=== PATIENT | male | born 1935 | race Caucasian/White ===

== ENCOUNTER 2024-09-14 16:54 | Inpatient (IN) ==
--- NOTE | 2024-09-14 17:27 | Emergency Department Note ---
Impression & Plan Hypoxia, Community acquired pneumonia ED Provider Note Provider: Rafy Lowry MD CHIEF COMPLAINT: Shortness of breath, weakness HISTORY OF PRESENT ILLNESS: Patient is a 88-year-old gentleman history of atrial flutter status post watchman placement this past week presenting here reporting for the last several days worsening cough and cold symptoms. Was having a productive cough with colored sputum last night. Feeling quite short of breath when trying to get around his house today. Did not fall or syncopized. Denies significant chest pain or abdominal pain. States little bit of chronic swelling of his left leg. Is not currently on blood thinners. Does not use significant cough or cold medicine. Patient's son has been ill with a head cold. Patient reports some sinus congestion but denies severe myalgias just more of a generalized weakness and again shortness of breath. PAST MEDICAL HISTORY: As noted above MEDICATIONS: Reviewed home medications SOCIAL HISTORY: Quit smoking in 1959 PHYSICAL EXAM: GENERAL: alert and oriented in no acute distress on stretcher Head: normocephalic and atraumatic EYES: No injection, discharge or icterus. EOMI. NECK: Trachea midline. ENT: Mucous membranes pink and moist. LUNGS: Airway patent. No retractions. Breath sounds some scattered wheeze mild tachypnea HEART: Irregular irregular rate and rhythm. No chest wall tenderness ABDOMEN: Soft and non-tender, without guarding or rebound. SKIN: Acyanotic, warm, dry, without rashes EXTREMITIES: Without tenderness with trace to 1+ bilateral lower extremity edema. NEUROLOGICAL: No focal deficits. No aphasia. No facial droop or slurred speech. Ambulatory. EK bpm atrial fibrillation. Some baseline respiratory artifact. No clear acute ST segment elevation with a right bundle branch block. Some nonspecific T wave changes. QTc 503. CONTINUOUS CARDIAC MONITORING: was ordered and showed a heart rate of 90s to 110s bpm in atrial fibrillation Patient's laboratory studies and imaging reviewed. Differential includes Reactive airway disease, pneumonia, pneumothorax, COPD, CHF, infections, cardiac ischemia, pulmonary embolism, musculoskeletal, gastrointestinal, as well as other pathologies. IMPRESSION/MEDICAL DECISION MAKING: Mildly tachypneic and wheezy here. No significant smoking history or asthma history. Some borderline A-fib RVR given a bit of metoprolol here. Given his wheezing is trialed a DuoNeb. Recent Watchman procedure but question if this is more infectious rather than complication from the procedure. Does not seem grossly fluid overloaded on exam. Will obtain chest x-ray basic blood work and a COVID flu RSV test. EKG without evidence of STEMI denies significant chest pain. No significant abdominal symptoms reported. 1 view chest x-ray obtained without evidence of significant pulmonary edema, pneumothorax, or large lobar pneumonia. CTA of the chest to exclude underlying PE and further evaluate for an occult pneumonia ordered. No leukocytosis on blood work here severe anemia. No significant electrolyte abnormality. Normal renal function. No transaminitis noted. BNP mildly elevated but less so than previous. Procalcitonin not significantly elevated. Negative COVID flu RSV. CT angiogram of the chest per radiology shows no evidence of significant PE or pericardial effusion. Do question some mild diffuse inflammatory changes. Will cover with course of antibiotics given doxycycline and ceftriaxone here as well as a small dose of steroids here. Did receive a small dose of metoprolol with the DuoNeb with rate control achieved. Currently on 3 L of oxygen satting well. Discussed with him and daughter findings. Do recommend that we bring him in especially in light of his hypoxia for further care. Hospitalist team was contacted. DIAGNOSIS: Hypoxia, community-acquired pneumonia DISPOSITION: Hospitalist will evaluate Patient was agreeable with this plan. 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 Acid reflux Right inguinal hernia Surgically Repaired Vertigo Actinic keratosis Actinic skin damage Arthritis knees History of BPH Hypercholesterolemia Seborrheic keratosis Atrial fibrillation Hypertension Chest pain "real sharp pain once in a while, I've had since I was young" Surgical History History of prostate biopsy (08/09/20) History of appendectomy as a teenager History of tonsillectomy and adenoidectomy as a child Hx of hernia repair (~2004) Family History Mother , Passed age 82 of cardiac issues Diabetes Father , Passed age 80 of Brain Aneurysm Prostate cancer, Onset Age: 75 no treatment that patient can remember Brother , Passed age 80 of double CABG issues No problems noted. Brother , Passed in 70's of suicide No problems noted. Brother , Passed in late 70's of heart failure/[place] No problems noted. Sister , Passed in 70's of unknown No problems noted. Sister , Passed in 70's of AR No problems noted. Sister Abdominal malignancy, Onset Age: 76 Currently battling Daughter No problems noted. Daughter No problems noted. Daughter No problems noted. Son No problems noted. Son No problems noted. 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: No Beliefs That Will Affect Care: None marital status: Current Living Situation: Family Current Living Situation Comment: and Daughter current occupational status: retired 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 Other Information That Helps Us Care for You: No Feels Safe at Home: Yes Safety Concerns: Feels Safe At This Time Childhood Exposure to Second-Hand Smoke: No Diet: regular caffeine: Yes (2 cups of coffee/day ) during the past year weight has: remained stable Dental Care, Regularly: Yes Assistive Devices: Denture - Upper and Denture - Lower Allergies Allergies Allergy/AdvReac Type Severity Reaction Status Date / Time Penicillins Allergy Unknown RASH Verified 09/14/24 18:58 Home Meds Home Medications Medication Instructions Recorded Confirmed atorvastatin 20 mg tablet 20 mg PO DAILY 01/25/19 09/14/24 acetaminophen 325 mg tablet 650 mg PO Q6H PRN Pain/Fever 10/01/20 09/14/24 ascorbic acid (vitamin C) 500 mg 1,000 mg PO DAILY 05/05/21 04/18/25 capsule,extended release doxazosin 1 mg tablet 1 mg PO DAILY 10/01/20 09/14/24 leuprolide (3 month) 22.5 mg (3 0 mg IM DIRECTED 10/01/20 09/14/24 month) intramuscular syringe kit (Lupron Depot) calcium carbonate (Tums) 1,000 mg PO DAILY 11/03/20 09/14/24 cholecalciferol (vitamin D3) 25 500 unit PO DAILY 11/03/20 09/14/24 mcg (1,000 unit) capsule aspirin 81 mg tablet,delayed 81 mg PO 3XWK 08/29/23 09/14/24 release (Adult Aspirin Regimen) carvedilol 6.25 mg tablet 6.25 mg PO BID 09/14/24 09/14/24 clopidogrel 75 mg tablet 75 mg PO DAILY 09/14/24 09/14/24 furosemide 20 mg tablet 20 mg PO DAILY 09/14/24 09/14/24 nitroglycerin 0.4 mg sublingual 0.4 mg sublingual DIRECTED PRN 09/14/24 09/14/24 tablet Chest Pain omega 3 350 mg-dha 235 mg-epa 90 1 cap PO DAILY 09/14/24 09/14/24 mg-fish oil 597 mg capsule,delay rel ([place]-3) Results & Data (ED) Vital Signs Vital Signs - 24 hr 09/14/24 16:57 09/14/24 17:02 09/14/24 17:24 Temperature 36.8 C Temperature Source Temporal Artery Scan Pulse Rate 87 Pulse Rate [Apical] Respiratory Rate 28 H Respiratory Effort / Characteristics Short of Breath Respiratory Depth Blood Pressure 126/81 Blood Pressure [Right Arm] Blood Pressure Mean 96 Blood Pressure Mean [Right Arm] Pulse Oximetry 89 L 98 96 Oxygen Delivery Method Room Air Oxymask Oxymask Oxygen Flow Rate 5 7 Sepsis Recent Fever Within 48 Hours No Sepsis New/Unexplained Change in Mental Status No Sepsis Action Taken by Nursing No Action Required Oxygen Flow Rate - Titration Pulse Oximetry Post Tiitration 09/14/24 17:27 09/14/24 17:33 09/14/24 18:28 Temperature Temperature Source Pulse Rate 112 H 110 H Pulse Rate [Apical] Respiratory Rate Respiratory Effort / Characteristics Respiratory Depth Blood Pressure 140/119 H Blood Pressure [Right Arm] Blood Pressure Mean Blood Pressure Mean [Right Arm] Pulse Oximetry 96 Oxygen Delivery Method Oxymask Oxygen Flow Rate 6 Sepsis Recent Fever Within 48 Hours Sepsis New/Unexplained Change in Mental Status Sepsis Action Taken by Nursing Oxygen Flow Rate - Titration 3 Pulse Oximetry Post Tiitration 96 09/14/24 19:00 Temperature Temperature Source Pulse Rate Pulse Rate [Apical] 96 H Respiratory Rate 18 Respiratory Effort / Characteristics Respiratory Depth Normal Blood Pressure Blood Pressure [Right Arm] 145/102 H Blood Pressure Mean Blood Pressure Mean [Right Arm] 116 Pulse Oximetry 94 Oxygen Delivery Method Oxymask Oxygen Flow Rate 3 Sepsis Recent Fever Within 48 Hours Sepsis New/Unexplained Change in Mental Status Sepsis Action Taken by Nursing Oxygen Flow Rate - Titration Pulse Oximetry Post Tiitration Laboratory Data 09/15/24 05:07 09/14/24 17:12 Lab Results 09/14/24 09/14/24 Range/Units 17:12 17:46 WBC 6.78 (4.8-10.8) K/ul RBC 4.60 L (4.70-6.10) M/uL Hgb 13.9 L (14.0-18.0) g/dl Hct 41.9 L (42.0-52.0) % MCV 91.1 (80.0-100.0) fL MCH 30.2 (25.0-34.0) pg MCHC 33.2 (32.0-36.0) g/dL RDW Std Deviation 45.7 (36.4-46.3) fL RDW Coeff of Cristel 13.6 (11.5-14.5) % Plt Count 211 (130-400) K/uL MPV 9.5 (9.4-12.4) fL Immature Gran % (Auto) 0.3 % Neut % (Auto) 79.7 % Lymph % (Auto) 11.2 % [place] % (Auto) 7.2 % Eos % (Auto) 1.2 % Baso % (Auto) 0.4 % Neut # (Auto) 5.40 (1.40-6.50) K/uL Lymph # (Auto) 0.76 L (1.20-3.40) K/uL [place] # (Auto) 0.49 (0.11-0.59) K/uL Eos # (Auto) 0.08 (0.00-0.50) K/uL Baso # (Auto) 0.03 (0.00-0.20) K/uL Immature Gran # (Auto) 0.02 (0.01-0.20) K/uL PT 10.8 (9.0-12.0) Seconds INR 1.0 (0.9-1.1) APTT 30 (21-31) Seconds PTT Ratio 1.1 Sodium 138 (136-145) mmol/L Potassium 4.5 (3.5-5.1) mmol/L Chloride 102 (98-107) mmol/L Carbon Dioxide 29 (21-32) mmol/L Anion Gap 7 (3-11) BUN 16 (6-23) mg/dl Creatinine 0.87 (0.6-1.4) mg/dl Est Cr Clr Drug Dosing Not Reportable eGFR 82.99 BUN/Creatinine Ratio 18.4 (10-20) Glucose 103 H (70-99(Fasting)) mg/dl Lactate 1.2 (0.4-2.0) mmol/L Calcium 8.4 L (8.6-10.3) mg/dl Total Bilirubin 1.0 (0.2-1.0) mg/dl AST 35 (13-39) U/L ALT 18 (7-52) U/L Alkaline Phosphatase 72 (34-104) U/L Troponin I High Sens 20.5 H (0-20) pg/ml B-Natriuretic Peptide 206 H (0-100) pg/ml Total Protein 7.0 (6.0-8.3) gm/dl Albumin 3.8 (3.4-5.0) gm/dl Globulin 3.2 (2.5-4.0) gm/dl Albumin/Globulin Ratio 1.2 (0.9-2) Procalcitonin 0.05 (0-0.5) ng/ml SARS-CoV-2 (PCR) NEGATIVE (Negative) Influenza Type A (PCR) Negative (Neg) Influenza Type B (PCR) Negative (Neg) RSV (RT-PCR) Negative (Neg) Administered Medications Albuterol (Albut/Ipratrop 3mg/0.5mg Neb 3 Ml Vial) 3 ml NEB Q4R [facility]; Protocol Stop: 10/14/24 23:18 Last Admin: 09/15/24 07:59 Dose: 3 ml Documented By: Admin: 09/15/24 02:30 Dose: 3 ml Documented By: Admin: 09/14/24 23:34 Dose: 3 ml Documented By: DONI Atorvastatin Calcium (Atorvastatin 20 Mg Tab) 20 mg PO DAILY EDGAR Stop: 10/15/24 08:59 Last Admin: 09/15/24 08:17 Dose: 20 mg Documented By: MARIJA Azithromycin (Azithromycin 250 Mg Tab) 500 mg PO HS EDGAR Stop: 09/19/24 23:44 Last Admin: 09/15/24 01:28 Dose: 500 mg Documented By: STEPHANIE Calcium Carbonate (Calcium Carbonate 500 Mg Chewable Tab) 1,000 mg PO DAILY EDGAR Stop: 10/15/24 08:59 Last Admin: 09/15/24 08:16 Dose: 1,000 mg Documented By: MARIJA Carvedilol (Carvedilol 6.25 Mg Tab) 6.25 mg PO BID EDGAR Stop: 10/14/24 23:18 Last Admin: 09/15/24 08:17 Dose: 6.25 mg Documented By: Admin: 09/15/24 01:28 Dose: 6.25 mg Documented By: STEPHANIE Clopidogrel Bisulfate (Clopidogrel Bisulfate 75 Mg Tab) 75 mg PO DAILY EDGAR Stop: 10/15/24 08:59 Last Admin: 09/15/24 08:16 Dose: 75 mg Documented By: MARIJA Dextromethorphan Polymer Complex (Dextromethorphan Polymr Complx 30 Mg/5 Ml Udp) 30 mg PO Q12H PRN PRN Reason: Cough Stop: 10/15/24 06:13 Last Admin: 09/15/24 08:18 Dose: 30 mg Documented By: MARIJA Doxazosin Mesylate (Doxazosin Mesylate 1 Mg Tab) 1 mg PO DAILY EDGAR Stop: 10/15/24 08:59 Last Admin: 09/15/24 08:16 Dose: 1 mg Documented By: MARIJA Furosemide (Furosemide 20 Mg Tab) 20 mg PO DAILY EDGAR Stop: 10/15/24 08:59 Last Admin: 09/15/24 08:17 Dose: 20 mg Documented By: MARIJA Guaifenesin (Guaifenesin 600 Mg Tabcr) 600 mg PO Q12 EDGAR Stop: 10/15/24 08:59 Last Admin: 09/15/24 08:18 Dose: 600 mg Documented By: MARIJA Methylprednisolone 40 mg/ (Syringe) 0.64 mls @ 1.5 mls/min IV QAM EDGAR Stop: 10/15/24 08:59 Last Admin: 09/15/24 09:10 Dose: 1.5 mls/min Documented By: MARIJA Discontinued Medications Albuterol (Albut/Ipratrop 3mg/0.5mg Neb 3 Ml Vial) 3 ml NEB NOW STA; Protocol Stop: 09/14/24 17:30 Last Admin: 09/14/24 17:32 Dose: 3 ml Documented By: NRB Doxycycline Hyclate (Doxycycline Hyclate 100 Mg Cap) 100 mg PO NOW STA Stop: 09/14/24 18:23 Last Admin: 09/14/24 18:36 Dose: 100 mg Documented By: NRB Ceftriaxone Sodium (Rocephin) 2,000 mg in 50 mls @ 100 mls/hr IV NOW STA Stop: 09/14/24 18:51 Last Infusion: 09/14/24 19:07 Dose: Infused Documented By: NRAlix Admin: 09/14/24 18:36 Dose: 100 mls/hr Documented By: STEPHANIE Ioversol (Optiray 320 125ml) 119 ml IV ONCE ONE Stop: 09/14/24 18:17 Last Admin: 09/14/24 18:16 Dose: 119 ml Documented By: JOANNAK Methylprednisolone (Methylprednisolone 125 Mg/2 Ml Vial) 40 mg IV NOW STA Stop: 09/14/24 18:30 Last Admin: 09/14/24 18:36 Dose: 40 mg Documented By: NRAlix Metoprolol Tartrate (Metoprolol Tartrate 1 Mg/Ml Vial) 5 mg IV NOW STA Stop: 09/14/24 17:30 Last Admin: 09/14/24 17:33 Dose: 5 mg Documented By: NRB Discharge Plan Visit Data Chief Complaint: Shortness of Breath/Dyspnea Stated Complaint: WHEEZNG, SOB, HEAD COLD ED Provider: Rafy Lowry Discharge Problem: Hypoxia, Community acquired pneumonia Patient Disposition: Being Evaluated by Hospitalist Discharge Instructions Interventions: ED Discharge Assessment Last Done: 09/14/24 23:19
[2024-09-14 17:32] LABS: Basophils # (auto) 0.03 K/uL (0.00-0.20); Basophils % (auto) 0.4 %; Eosinophils # (auto) 0.08 K/uL (0.00-0.50); Eosinophils % (auto) 1.2 %; Hematocrit (blood only) 41.9 % (42.0-52.0); Hemoglobin 13.9 g/dl (14.0-18.0); Immature Granulocytes # (auto) 0.02 K/uL (0.01-0.20); Immature Granulocytes % (auto) 0.3 %; Lymphocytes # (auto) 0.76 K/uL (1.20-3.40); Lymphocytes % (auto) 11.2 %; Mean Corpuscular Hemoglobin 30.2 pg (25.0-34.0); Mean Corpuscular Hgb Conc 33.2 g/dL (32.0-36.0); Mean Corpuscular Volume 91.1 fL (80.0-100.0); Mean Platelet Volume 9.5 fL (9.4-12.4); Monocytes # (auto) 0.49 K/uL (0.11-0.59); Monocytes % (auto) 7.2 %; Neutrophils % (auto) 79.7 %; Platelet Count 211 K/uL (130-400); RDW Coefficient of Variation 13.6 % (11.5-14.5); RDW Standard Deviation 45.7 fL (36.4-46.3); White Blood Count 6.78 K/ul (4.8-10.8)
[2024-09-14] MEDS: ALBUT/IPRATROP 3MG/0.5MG NEB 3 ML VIAL NEB STA (17:32)
[2024-09-14] MEDS: METOPROLOL TARTRATE 1 MG/ML VIAL IV STA (17:33)
[2024-09-14 17:52] LABS: Alanine Aminotransferase 18 U/L (7-52); Albumin Globulin Ratio 1.2 (0.9-2); Albumin Level 3.8 gm/dl (3.4-5.0); Alkaline Phosphatase 72 U/L (34-104); Anion Gap 7 (3-11); Aspartate Aminotransferase 35 U/L (13-39); BUN Creatinine Ratio 18.4 (10-20); Blood Urea Nitrogen 16 mg/dl (6-23); Calcium 8.4 mg/dl (8.6-10.3); Carbon Dioxide 29 mmol/L (21-32); Chloride 102 mmol/L (98-107); Globulin 3.2 gm/dl (2.5-4.0); Glucose 103 mg/dl (70-99(Fasting)); Potassium 4.5 mmol/L (3.5-5.1); Sodium 138 mmol/L (136-145)
[2024-09-14 17:56] LABS: Partial Thromboplastin Ratio 1.1; Partial Thromboplastin Time 30 Seconds (21-31); Prothrombin Time 10.8 Seconds (9.0-12.0)
[2024-09-14 17:58] LABS: Influenza A virus by PCR Negative (Neg); Influenza B virus by PCR Negative (Neg); RSV by PCR Negative (Neg); SARS CoV2 RNA(COVID-19) Ceph NEGATIVE (Negative); Troponin I High Sensitivity 20.5 pg/ml (0-20)
[2024-09-14] MEDS: OPTIRAY 320 125ml IV ONE (18:16)
[2024-09-14] MEDS: cefTRIAXone SODIUM 2,000 MG/50 ML BAG IV STA (18:36)
[2024-09-14] MEDS: methylPREDNISolone 125 MG/2 ML VIAL IV STA (18:36)
[2024-09-14] MEDS: DOXYCYCLINE HYCLATE 100 MG CAP PO STA (18:36)
--- NOTE | 2024-09-14 18:36 | XRay Report ---
Chest radiograph, one view History: Chest pain Comparison: 03/25/2016 Findings: Single AP view of the chest performed. Subtle streaky opacity at the right lower lung. Slightly blunted right costophrenic angle. No pneumothorax. The heart is enlarged. Left chest wall single-lead AICD. Normal pulmonary vascularity. No evidence for lymphadenopathy. No visualized bony or soft tissue abnormality. Impression: Subtle right basilar streaky opacity, atelectasis versus infection. Slightly blunted right costophrenic angle favoring small pleural effusion. Electronically signed by Jorge L Almazan 09-14-2024 6:35 PM
--- NOTE | 2024-09-14 19:24 | History & Physical Report ---
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 ED evaluation reveals no leukocytosis, H&H 13.9/41.9; normal PT/INR; CMP grossly WNL with exception glucose 103, calcium 8.4; troponin is 20.5, pending repeat; BNP 206; procalcitonin 0.05; COVID/flu/RSV negative CXR reveals subtle R basilar streaky opacity, atelectasis versus infection and slightly blunted R costophrenic angle favoring a small pleural effusion;chest CTA no PE or stenosis, bilateral areas of groundglass nodules in right basilar atelectatic plate seen possible inflammatory/infectious changes, enlarged mediastinal lymph nodes largest being the right paratracheal at 2.1 x 1.5 cm; EKG reveals A-fib with RVR and RBBB at 110 bpm.; Patient was provided with metoprolol 5 mg IV, methylprednisone 40 mg IV, doxycycline 100 mg p.o., ceftriaxone 2 g IV, and albuterol 3 mL neb in ED. 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 Sick contact of son. Previous smoker, no longer smoking. Suspect CAP, viral vs reactive. - CBC without leukocytosis, BNP 206 (down from baseline), Pro-Scooby 0.05 - CBC am - COVID/flu/RSV negative - CXR R basilar streaky opacity, atelectasis versus infection with slightly bl unted R costophrenic angle favoring a small pleural effusion - Chest CTA no PE or stenosis, bilateral areas of groundglass nodules in right basilar atelectatic plate seen possible inflammatory/infectious changes, enlarged mediastinal lymph nodes largest being the right paratracheal at 2.1 x 1.5 cm - Trop 20.5, pending repeat; EKG A-fib at 110 bpm, no signs of ischemia; No chest pain - demand - O2 prn; No O2 at baseline - FV + IC - DuoNeb gordon and prn - Solu-Medrol 40mg IV qAM - No F/C, no leukocytosis, procal WNL, and no localized area consolidation on CXR - Atypical coverage provided --> Azithro 500mg po x 3 days -- Adjust antibiotics as appropriate - Consider outpatient PFTs #A-fib with RVR H/o Afib, recent Watchman procedure in July 2024. Typically on carvedilol twice daily, eliquis d/c following watchman; DAPT currently. Received metoprolol tartrate 5 mg IV in ED. - EKG on admission does reveal A-fib with RVR to 110 bpm - Telemetry reveals A-fib, rate into 80s-90s - CBC without leukocytosis and overall stable H&H, CMP with mildly decreased calcium (8.4), troponin 20.5 and pending repeat, BNP at 206 - Currently rate acceptable for current illness - Monitor on telemetry #HLD- Atorvastatin - continue #Prostate CA/BPH- Follows with urology, most recent visit 03/12/2024; Lupron previously, no longer on; Doxazosin - continue Dispo: Admit, PCU VTE Prophylaxis: SCDs This document was dictated utilizing [employer]. Please excuse any grammatical errors that may be secondary to use of this software. 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 States that he does have a productive cough, but with clear sputum and that this has decreased some. 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 Denies fever or chills. No chest pain, palpitations, abdominal pain, N/V/D/C, numbness/tingling, LUTS, or F/C. Does not have a history of COPD or asthma. Smoked in the past, quit in the 1960s per patient. ED evaluation reveals no leukocytosis, H&H 13.9/41.9; normal PT/INR; CMP grossly WNL with exception glucose 103, calcium 8.4; troponin is 20.5, pending repeat; BNP 206; procalcitonin 0.05; COVID/flu/RSV negative CXR reveals subtle R basilar streaky opacity, atelectasis versus infection and slightly blunted R costophrenic angle favoring a small pleural effusion; chest CTA no PE or stenosis, bilateral areas of groundglass nodules in right basilar atelectatic plate seen possible inflammatory/infectious changes, enlarged mediastinal lymph nodes largest being the right paratracheal at 2.1 x 1.5 cm.; EKG reveals A-fib with RVR and RBBB at 110 bpm.; Patient was provided with metoprolol 5 mg IV, methylprednisone 40 mg IV, doxycycline 100 mg p.o., ceftriaxone 2 g IV, and albuterol 3 mL neb in ED. Please see Dr. Porter's attestation for adjustments/additions to treatment plan. Allergies Allergy/AdvReac Type Severity Reaction Status Date / Time Penicillins Allergy Unknown RASH Verified 09/14/24 18:58 Home Medications Medication Instructions Recorded Confirmed Type atorvastatin 20 mg tablet 20 mg PO DAILY 01/25/19 09/14/24 History acetaminophen 325 mg tablet 650 mg PO Q6H PRN Pain/Fever 10/01/20 09/14/24 History ascorbic acid (vitamin C) 500 mg 1,000 mg PO DAILY 10/01/20 09/14/24 History capsule,extended release doxazosin 1 mg tablet 1 mg PO DAILY 10/01/20 09/14/24 History leuprolide (3 month) 22.5 mg (3 0 mg IM DIRECTED 10/01/20 09/14/24 History month) intramuscular syringe kit (Lupron Depot) calcium carbonate (Tums) 1,000 mg PO DAILY 11/03/20 09/14/24 History cholecalciferol (vitamin D3) 25 500 unit PO DAILY 11/03/20 09/14/24 History mcg (1,000 unit) capsule aspirin 81 mg tablet,delayed 81 mg PO 3XWK 08/29/23 09/14/24 History release (Adult Aspirin Regimen) carvedilol 6.25 mg tablet 6.25 mg PO BID 09/14/24 09/14/24 History clopidogrel 75 mg tablet 75 mg PO DAILY 09/14/24 09/14/24 History furosemide 20 mg tablet 20 mg PO DAILY 09/14/24 09/14/24 History nitroglycerin 0.4 mg sublingual 0.4 mg sublingual DIRECTED PRN 09/14/24 09/14/24 History tablet Chest Pain omega 3 350 mg-dha 235 mg-epa 90 1 cap PO DAILY 09/14/24 09/14/24 History mg-fish oil 597 mg capsule,delay rel ([place]-3) 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 Acid reflux Right inguinal hernia Surgically Repaired Vertigo Actinic keratosis Actinic skin damage Arthritis knees History of BPH Hypercholesterolemia Seborrheic keratosis Atrial fibrillation Hypertension Chest pain "real sharp pain once in a while, I've had since I was young" Surgical History History of prostate biopsy (08/09/20) History of appendectomy as a teenager History of tonsillectomy and adenoidectomy as a child Hx of hernia repair (~2004) Family History Mother , Passed age 82 of cardiac issues Diabetes Father , Passed age 80 of Brain Aneurysm Prostate cancer, Onset Age: 75 no treatment that patient can remember Brother , Passed age 80 of double CABG issues No problems noted. Brother , Passed in 70's of suicide No problems noted. Brother , Passed in late 70's of heart failure/VT No problems noted. Sister , Passed in 70's of unknown No problems noted. Sister , Passed in 70's of VT No problems noted. Sister Abdominal malignancy, Onset Age: 76 Currently battling Daughter No problems noted. Daughter No problems noted. Daughter No problems noted. Son No problems noted. Son No problems noted. Social History Smoking Status: Former smoker Tobacco Type: Cigarettes packs per day: 1; Second Hand Exposure: No; Do You Dip or Chew Tobacco: Yes (Quit 1959, Used 40 yrs ); Hx Alcohol Use: Yes Alcohol type: beer Alcohol Intake Frequency: 4 or More x per/Week Hx Substance Use: No Preferred Language: Maltese Communication Ability: Effective Visual Impairment: Limited Hearing Ability: Hard of Hearing [place] Winder Required: No Beliefs That Will Affect Care: None marital status: Current Living Situation: Family Current Living Situation Comment: and Daughter current occupational status: retired 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 Other Information That Helps Us Care for You: No Feels Safe at Home: Yes Safety Concerns: Feels Safe At This Time Childhood Exposure to Second-Hand Smoke: No Diet: regular caffeine: Yes (2 cups of coffee/day ) during the past year weight has: remained stable Dental Care, Regularly: Yes Assistive Devices: Denture - Upper and Denture - Lower Review of Systems Review of Systems: All systems reviewed & are unremarkable except as noted in Subjective Physical Exam Physical Exam: General: No acute distress Skin: Warm and dry Head: Normocephalic, atraumatic Eyes: PERRL, conjunctivae clear, sclera non-icteric ENT: External ear and ear canal without swelling, [place]; nose atraumatic; good dentition, tongue normal appearance, pharynx normal Neck: Supple, no LAD Cardio: Irregularly irregular rhythm, regular rate, no M/G/R, S1 and S2 normal; surgical scar on chest Resp: Audible wheezing without stethoscope on exam, inspiratory and expiratory wheezing throughout Abdomen: Soft, symmetric, nontender; No masses or hepatosplenomegaly; Bowel sounds normoactive MSK: No deformities; pulses palpable and equal; no edema. Neuro: Awake, alert; Sensation intact bilaterally; CN grossly intact Psych: Appropriate mood and affect; good judgement and insight. Daughter, Brian, is present in room at time of visit. Results & Data Results & Data Vital Signs (Past 12 Hours) Vital Signs Temp Pulse Pulse Resp BP BP Pulse Ox 09/14/24 19:00 96 H 18 145/102 H 94 09/14/24 18:28 96 09/14/24 17:33 110 H 140/119 H 09/14/24 17:27 112 H 09/14/24 17:24 96 09/14/24 17:02 98 09/14/24 16:57 36.8 C 87 28 H 126/81 89 L O2 Del Method O2 Flow Rate 09/14/24 19:00 Oxymask 3 09/14/24 18:28 Oxymask 6 09/14/24 17:33 09/14/24 17:27 09/14/24 17:24 Oxymask 7 09/14/24 17:02 Oxymask 5 09/14/24 16:57 Room Air Laboratory Results 09/14/24 17:46 Aerobic Blood Culture - Pending Blood Anaerobic Blood Culture - Pending 09/14/24 17:45 Aerobic Blood Culture - Pending Blood Anaerobic Blood Culture - Pending 09/14/24 09/14/24 17:46 17:12 WBC 6.78 RBC 4.60 L Hgb 13.9 L Hct 41.9 L MCV 91.1 MCH 30.2 MCHC 33.2 RDW Std Deviation 45.7 RDW Coeff of Cristel 13.6 Plt Count 211 MPV 9.5 Immature Gran % (Auto) 0.3 Neut % (Auto) 79.7 Lymph % (Auto) 11.2 Hall % (Auto) 7.2 Eos % (Auto) 1.2 Baso % (Auto) 0.4 Neut # (Auto) 5.40 Lymph # (Auto) 0.76 L Hall # (Auto) 0.49 Eos # (Auto) 0.08 Baso # (Auto) 0.03 Immature Gran # (Auto) 0.02 PT 10.8 INR 1.0 APTT 30 PTT Ratio 1.1 Sodium 138 Potassium 4.5 Chloride 102 Carbon Dioxide 29 Anion Gap 7 BUN 16 Creatinine 0.87 Est Cr Clr Drug Dosing Not Reportable eGFR 82.99 BUN/Creatinine Ratio 18.4 Glucose 103 H Lactate 1.2 Calcium 8.4 L Total Bilirubin 1.0 AST 35 ALT 18 Alkaline Phosphatase 72 Troponin I High Sens 20.5 H B-Natriuretic Peptide 206 H Total Protein 7.0 Albumin 3.8 Globulin 3.2 Albumin/Globulin Ratio 1.2 Procalcitonin 0.05 SARS-CoV-2 (PCR) NEGATIVE Influenza Type A (PCR) Negative Influenza Type B (PCR) Negative RSV (RT-PCR) Negative Diagnostic Findings Chest X-Ray 09/14/24 17:10 Chest radiograph, one view History: Chest pain Comparison: 03/25/2016 Findings: Single AP view of the chest performed. Subtle streaky opacity at the right lower lung. Slightly blunted right costophrenic angle. No pneumothorax. The heart is enlarged. Left chest wall single-lead AICD. Normal pulmonary vascularity. No evidence for lymphadenopathy. No visualized bony or soft tissue abnormality. Impression: Subtle right basilar streaky opacity, atelectasis versus infection. Slightly blunted right costophrenic angle favoring small pleural effusion. Electronically signed by Jorge L Almazan 09-14-2024 6:35 PM Chest CTA 09/14/24 17:41 EXAM: CT angio chest PE protocol CLINICAL HISTORY: PE, hypoxia/sob. TECHNIQUE: CT angiography of the chest was performed with and without intravenous contrast with the following protocol: axial images with, reconstructed coronal and sagittal images. Non-contrast images were initially acquired, followed by contrast-enhanced images in arterial and venous phases. Intravenous contrast 119ml opti 320 was administered using automated injection techniques. Bolus tracking was employed to optimize arterial phase imaging. One of these 3D techniques was utilized: Maximum Intensity Pixel (MIP), 3D Reconstructed Images, Volume Rendered Images, Surface Shaded Rendering. One of the following dose reduction techniques was utilized for this exam: Automated exposure control, adjustment of the mA and/or kV according to patient size, and use of iterative reconstruction. COMPARISON: Comparison is made with [previous imaging studies, if available, otherwise state "No prior studies available for comparison."] FINDINGS: Aorta and Great Vessels: Ascending Aorta: Normal in caliber, no aneurysm, dissection, or significant atherosclerosis. Aortic Arch: Normal in caliber, no aneurysm, dissection, or significant atherosclerosis. Descending Aorta: Normal in caliber, no aneurysm, dissection, or significant atherosclerosis. Pulmonary Arteries: The main pulmonary artery and its branches are patent. No evidence of pulmonary embolism or significant stenosis. Heart: Cardiac Chambers: Normal in size. No evidence of cardiomegaly. Pericardium: No pericardial effusion or thickening. Left atrial appendage closure noted. Lungs and Pleura: Bilateral areas of ground glass nodules and right basal atelectatic plate is seen. No pleural effusion or pleural thickening. Mediastinum: Enlarged mediastinal lymph nodes largest is right paratracheal measuring 2.1x1.5 cm. Normal appearance of the trachea and central bronchi. Hilar Structures: Hilar structures are normal without enlargement. Chest Wall: No mass lesions or abnormalities in the chest wall. Vascular Structures: Superior Vena Cava: Patent without evidence of stenosis or thrombus. Inferior Vena Cava: Patent without evidence of stenosis or thrombus. Bones and Soft Tissues: No fractures, lytic, or blastic lesions of the visualized bony structures. Soft tissues are unremarkable. IMPRESSION: 1. No evidence of pulmonary embolism or significant stenosis. 2. Bilateral areas of ground glass nodules and right basal atelectatic plate is seen. Possible inflammatory/infectious changes. Correlate clinically. 3. Enlarged mediastinal lymph nodes largest is right paratracheal, measuring 2.1x1.5 cm. Electronically signed by Kenny Harrell 09-14-2024 8:11 PM Medications Administered Metoprolol tartrate 5 mg IV Methylprednisolone 40 mg IV Doxycycline 100 mg p.o. Ceftriaxone 2 g IV Albuterol 3 mL neb x 1 ECG Additional Comments: A-fib with RVR, RBBB 110 bpm, QRS 134, QT/QTc 372/503, PRT */268/34 Code Status & VTE Plan Code Status Full Supervising Physician Co-Signing Physician Notes I personally saw and examined the patient. I independently reviewed the labs, EKG, imaging, problem list, medication list, past medical history and family history. I verified all belle points and agree with Annita Wesley PA-C with the following exceptions and/or additions: 88 year old male presents to the ER with progressive shortness of breath for the last week. Reports occasional wheezing with illnesses prior to this but no diagnosed COPD or asthma. O/E HS increased rate, irregular rhythm, no murmurs, increased accessory muscle use, Chest expiratory wheezing throughout, no crackles, Abdo SNT A/P Acute respiratory failure with hypoxia / reactive airway disease / suspected viral pneumonia - duonebs, solu-medrol 40mg IV daily, guaifenesin, dextromethorphan PRN for cough, incentive spirometer, flutter valve, doxycycline to cover for atypical pneumonia - recommend follow up PFTs as outpatient A. fib rate appears to be appropriate for current illness and will continue his usual carvedilol for rate control PG Care Time/CCT Total # of Minutes Spent Total Time Spent with Patient: Total time spent is greater than 50% in coordination of care (as documented) at patient's floor/unit and/or counseling patient: Coding Level of Care Code 95417 INT INP/OBS CARE 3/75MIN Diagnoses Acute hypoxic respiratory failure J96.01 Atrial fibrillation with rapid ventricular response I48.91 Reactive airway disease J45.909 Viral pneumonia J12.9
--- NOTE | 2024-09-14 20:13 | CT Scan Report ---
EXAM: CT angio chest PE protocol CLINICAL HISTORY: PE, hypoxia/sob. TECHNIQUE: CT angiography of the chest was performed with and without intravenous contrast with the following protocol: axial images with, reconstructed coronal and sagittal images. Non-contrast images were initially acquired, followed by contrast-enhanced images in arterial and venous phases. Intravenous contrast 119ml opti 320 was administered using automated injection techniques. Bolus tracking was employed to optimize arterial phase imaging. One of these 3D techniques was utilized: Maximum Intensity Pixel (MIP), 3D Reconstructed Images, Volume Rendered Images, Surface Shaded Rendering. One of the following dose reduction techniques was utilized for this exam: Automated exposure control, adjustment of the mA and/or kV according to patient size, and use of iterative reconstruction. COMPARISON: Comparison is made with [previous imaging studies, if available, otherwise state "No prior studies available for comparison."] FINDINGS: Aorta and Great Vessels: Ascending Aorta: Normal in caliber, no aneurysm, dissection, or significant atherosclerosis. Aortic Arch: Normal in caliber, no aneurysm, dissection, or significant atherosclerosis. Descending Aorta: Normal in caliber, no aneurysm, dissection, or significant atherosclerosis. Pulmonary Arteries: The main pulmonary artery and its branches are patent. No evidence of pulmonary embolism or significant stenosis. Heart: Cardiac Chambers: Normal in size. No evidence of cardiomegaly. Pericardium: No pericardial effusion or thickening. Left atrial appendage closure noted. Lungs and Pleura: Bilateral areas of ground glass nodules and right basal atelectatic plate is seen. No pleural effusion or pleural thickening. Mediastinum: Enlarged mediastinal lymph nodes largest is right paratracheal measuring 2.1x1.5 cm. Normal appearance of the trachea and central bronchi. Hilar Structures: Hilar structures are normal without enlargement. Chest Wall: No mass lesions or abnormalities in the chest wall. Vascular Structures: Superior Vena Cava: Patent without evidence of stenosis or thrombus. Inferior Vena Cava: Patent without evidence of stenosis or thrombus. Bones and Soft Tissues: No fractures, lytic, or blastic lesions of the visualized bony structures. Soft tissues are unremarkable. IMPRESSION: 1. No evidence of pulmonary embolism or significant stenosis. 2. Bilateral areas of ground glass nodules and right basal atelectatic plate is seen. Possible inflammatory/infectious changes. Correlate clinically. 3. Enlarged mediastinal lymph nodes largest is right paratracheal, measuring 2.1x1.5 cm. Electronically signed by Kenny Harrell 09-14-2024 8:11 PM
[2024-09-14] MEDS ORDERED: NITROGLYCERIN SL 0.4 MG/TAB TAB SL PRN (23:19)
[2024-09-14] MEDS ORDERED: MELATONIN 3 MG TAB PO PRN (23:19)
[2024-09-14] MEDS ORDERED: ACETAMINOPHEN 325 MG TAB PO PRN (23:19)
[2024-09-14] MEDS ORDERED: ONDANSETRON INJ 2 MG/ML 2 ML VIAL IV PRN (23:19)
[2024-09-14] MEDS ORDERED: POLYETHYLENE (MIRALAX) 17 GM PACK PO PRN (23:19)
[2024-09-14] MEDS ORDERED: ALUMINUM/MAGNESIUM SUSP 30 ML UDC PO PRN (23:19)
[2024-09-14] MEDS: ALBUT/IPRATROP 3MG/0.5MG NEB 3 ML VIAL NEB SCH (23:34)
[2024-09-15] MEDS: carvediloL 6.25 MG TAB PO SCH (01:28)
[2024-09-15] MEDS: AZITHROMYCIN 250 MG TAB PO SCH (01:28)
[2024-09-15 05:29] LABS: Hematocrit (blood only) 40.8 % (42.0-52.0); Hemoglobin 13.7 g/dl (14.0-18.0); Mean Corpuscular Hemoglobin 30.6 pg (25.0-34.0); Mean Corpuscular Hgb Conc 33.6 g/dL (32.0-36.0); Mean Corpuscular Volume 91.3 fL (80.0-100.0); Mean Platelet Volume 9.3 fL (9.4-12.4); Platelet Count 208 K/uL (130-400); RDW Coefficient of Variation 13.3 % (11.5-14.5); RDW Standard Deviation 44.7 fL (36.4-46.3); Red Blood Count 4.47 M/uL (4.70-6.10); White Blood Count 4.46 K/ul (4.8-10.8)
[2024-09-15] MEDS: CALCIUM CARBONATE 500 MG CHEWABLE TAB PO SCH (08:16)
[2024-09-15] MEDS: CLOPIDOGREL BISULFATE 75 MG TAB PO SCH (08:16)
[2024-09-15] MEDS: DOXAZOSIN MESYLATE 1 MG TAB PO SCH (08:16)
[2024-09-15] MEDS: ATORVASTATIN 20 MG TAB PO SCH (08:17)
[2024-09-15] MEDS: FUROSEMIDE 20 MG TAB PO SCH (08:17)
[2024-09-15] MEDS: guaiFENesin 600 MG TABCR PO SCH (08:18)
[2024-09-15] MEDS: DEXTROMETHORPHAN POLYMR COMPLX 30 MG/5 ML UDP PO PRN (08:18)
[2024-09-15] MEDS ORDERED: methylPREDNISolone 125 MG/2 ML VIAL IV SCH (09:00)
--- NOTE | 2024-09-15 09:02 | Electrocardiogram Report ---
Test Reason : Blood Pressure : */* mmHG Vent. Rate : 110 BPM Atrial Rate : * BPM P-R Int : * ms QRS Dur : 134 ms QT Int : 372 ms P-R-T Axes : * 268 34 degrees QTcB Int : 503 ms Atrial fibrillation with rapid ventricular response Right bundle branch block Left anterior fascicular block Abnormal ECG When compared with ECG of 01-Sep-2020 13:26, Atrial fibrillation has replaced Electronic ventricular pacemaker Vent. rate has increased by 46 bpm Confirmed by Jorge L Tsai ([id number]) on 09/15/2024 9:01:40 AM Referred By: REFERRED SELF Confirmed By: Jorge L Tsai
[2024-09-15] MEDS: methylPREDNISolone 40 MG in SYRINGE 0 ML IV SCH (09:10)
--- NOTE | 2024-09-15 10:43 | Hospitalist Progress Note ---
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 ED evaluation reveals no leukocytosis, H&H 13.9/41.9; normal PT/INR; CMP grossly WNL with exception glucose 103, calcium 8.4; troponin is 20.5, pending repeat; BNP 206; procalcitonin 0.05; COVID/flu/RSV negative CXR reveals subtle R basilar streaky opacity, atelectasis versus infection and slightly blunted R costophrenic angle favoring a small pleural effusion;chest CTA no PE or stenosis, bilateral areas of groundglass nodules in right basilar atelectatic plate seen possible inflammatory/infectious changes, enlarged mediastinal lymph nodes largest being the right paratracheal at 2.1 x 1.5 cm; EKG reveals A-fib with RVR and RBBB at 110 bpm.; Patient was provided with metoprolol 5 mg IV, methylprednisone 40 mg IV, doxycycline 100 mg p.o., ceftriaxone 2 g IV, and albuterol 3 mL neb in ED. #Acute hypoxic respiratory failure / reactive airway disease no history of pulmonary disease, but is a former 1 ppd smoker x 10 years. No leukocytosis, procal negative on admission, repeat negative Chest xray/Chest CT without focal consolidation/PE. Enlarged mediastinal lymph nodes and ground glass opacities associated with infectious/inflammatory etiology noted RT following Requiring O2 supplementation via mask. No O2 therapy at baseline O2 at 3L on admission, currently at 2L Patient has been afebrile, HR and BP stable - DuoNeb gordon and prn - Solu-Medrol 40mg IV qAM, transition to PO prednisone 40mg daily starting in AM. - Azithromycin 500mg po x 3 days for atypical coverage - Will hold off on respiratory biofire at this time unless patient begins to decline. #A-fib with RVR Known history of Atrial Fibrillation s/p Watchman procedure in 07/2024. Continue home med carvedilol 6.25 mg BID for rate control. Heart rate has been stable. Currently anticoagulated with DAPT: asa 81mg 3x/week and plavix 75mg daily - was previously on Eliquis. D/C after Watchman procedure - EKG on admission does reveal A-fib with RVR to 110 bpm, received metoprolol tartrate 5 mg IV in ED. - Telemetry reveals A-fib, rate into 80s-90s - Initial troponin 20.5, repeat 21.1 - minimal change. no evidence of ACS. likely mild demand ischemia in setting of A fib w/rvr/acute illness. no further workup indicated - BNP at 206 (decreased from baseline) - Currently rate acceptable for current illness - Monitor on telemetry #HLD - continue atorvastatin 20mg daily #Cardiac disease/CHF -home med of nitro 0.4mg sublingual PRN chest pain & home med of furosemide 20mg PO daily. -No record of CAD/Angina or CHF in medical history. - Obtain records from cardiology Dr. Chan & PCP #Prostate CA/BPH- Hx of Stage IV Prostate Cancer treated with radiation therapy and Lupron x 12 month in 2020. Follows with urology, most recent visit 03/12/2024 Continue doxasozin. Dispo: Transfer to med surge w/ telemetry VTE Prophylaxis: non chemical prophylaxis with SCDs: on chronic DAPT with asa/plavix Admission and Anticipated Discharge Date Admission Date: September 14, 2024 Supervising Physician Co-Signing Physician Notes 88-year-old man without baseline lung disease admitted with 4 days of acute respiratory symptoms Mr. Schwab says he does feel somewhat better today though he is still short of breath and having wheezing he has not been able to produce any sputum my exam notable for diffuse expiratory wheezes bilaterally but reasonably good air movement, no jugular venous distention heart irregularly irregular no murmurs no peripheral edema seems most likely that he is having a viral respiratory infection with consequent bronchospasm and mild hypoxia. COVID flu and RSV were negative. continue bronchodilators and change steroids to oral prednisone We do will do a course of oral azithromycin to cover atypicals especially given the chest CT abnormality hold off on BioFire because it will not affect management he will need a repeat chest CT as an outpatient to follow-up the basilar nodularity and enlarged lymph node his A-fib is now reasonably well rate controlled on his usual home medications including carvedilol, he is not anticoagulated because he had a Watchman procedure in the past Subjective Patient is a 88 year old male with PMHx of Atrial Fibrillation s/p Watchmann procedure 08/21, HTN, HLD, Prostate cancer s/p chemo and radiation treatment 2020, BPH, GERD who presented to the ED with worsening sob, uri sx, weakness. He states he began with cold sx earlier this week, exposure to son who had recent URI as well. Patient was found to be hypertensive, hypoxic, with mild tachycardia. He was placed on supplemental O2, labs with mild elevation in BNP and troponin. Repeat troponin relatively unchanged and patient is without chest pain, diaphoresis, dizziness and BNP is decreased from baseline. ECG with Atril fibrillation with RVR, ventricular rate 111 bpm. Chest xray without focal pneumonia, pleural effusion. Chest CT without PE, noted ground glass opacities and mediastinal lymphadenopathy, likely due to inflammatory/infectious process. Panel for influenza/covid/rsv negative. Patient was provided with metoprolol 5 mg IV, methylprednisone 40 mg IV, doxycycline 100 mg p.o., ceftriaxone 2 g IV, and albuterol 3 mL neb in ED. He was admitted to PCU for ongoing treatment. Currently, patient reports he is feeling much better than yesterday. He is still experiencing nonproductive cough and sob, sob worse with exertion. He denies any history of lung disease. He is a former 1 ppd smoker for 10 years, quit 1959. He consumes alcohol a few times/week, no more than 1 can/day when using, no illicit drug use. He is currently ambulating with walker, very independent and active at his baseline. He reports generalized weakness since onset of illness. He states he began with runny nose/PND and cough on Tuesday/Tuesday and was exposed to son who was sick with URI. He states congestion, runny nose, PND has otherwise resolved. He states he did not have a fever and that cough/sob has progressively worsened. He states cough/sob is worsened with walking/having conversation, denies any alleviating factors. He currently denies fevers/chills, REYNOLDS, dizziness, sore throat, productive cough, palpitations, chest pain, calf pain /redness/swelling, edema, abdominal pain, N/V/D/C, polyuria, difficulty urinating, numbness/tingling. He admitted to burning with urination when conducting ROS. He states that his night monitor in Dr. Chan with [facility], records not available currently. Sublingual nitro and daily furosemide are noted in home med list. He denies known history of CAD/CHF. He reports medications were given by PCP. He s tates he was given nitro PRN after reporting HAJI some time ago, he states he had taken once but not for chest pain. He reports he was started on furosemide daily 1 month ago by PCP when he was evaluated for bilateral LE edema. He reports he has heart murmur as well, unaware of last echo. He states edema has significantly improved since starting furosemide, but has not changed dyspnea sx. Review of Systems Review of Systems: A 10 point review of systems has been obtained and negative unless otherwise noted in HPI Physical Exam Physical Exam: General: no acute distress; non-toxic appearing; well-nourished; cooperative HEENT: normocephalic, atraumatic; no scleral icterus; PERRLA w/ EOMs intact; vision grossly intact; (+) hard of hearing on L side Neck: supple; no lymphadenopathy; trachea midline. JVD not present. Skin: warm, dry without signs of tenting; no cyanosis; no rashes, bruising, lesions, or erythema noted CV: chest wall NTP; (+) irregular rhythm. rate normal; S1/S2 normal; (+) murmur, no rubs/gallops; pulses intact and symmetric at radial, DP, and PT Lungs: (+) O2 supplementation via mask; no acute respiratory distress; symmetrical chest wall expansion; (+) audible expiratory wheezing (+) cough (+) expiratory wheezing throughout lung hartmann with rhonchi present RLL. ABD: Soft, NTP; BS present; no rebound/guarding; no distention MSK: no tics or fasciculations; no edema noted in the LEs b/l, nonerythematous Neuro: A&Ox3; normal mood and affect; fluent speech; no focal deficits; sensation grossly intact in the LEs b/l Results & Data Results & Data Vital Signs (Past 12 Hours) Vital Signs Temperature, HR, RR, BP, O2 saturations, O2 delivery method reviewed Pulse Pulse Resp BP Pulse Ox Pulse Ox O2 Del Method to sleep 09/15/24 08:01 86 24 97 Oxymask 09/15/24 08:00 90 24 130/84 94 Oxymask 09/15/24 07:03 71 09/15/24 06:12 72 21 140/101 H 97 Oxymask 09/15/24 05:30 76 21 136/98 97 Oxymask 09/15/24 05:12 91 H 24 144/89 H 97 Oxymask 09/15/24 04:03 70 23 123/81 96 Oxymask 09/15/24 03:00 76 20 137/83 96 Oxymask 09/15/24 02:30 78 18 94 Oxymask 09/15/24 02:03 82 20 130/90 95 Oxymask 09/15/24 01:06 84 23 128/95 96 Oxymask 09/14/24 23:35 94 H 18 98 Oxymask 09/14/24 23:00 84 128/95 09/14/24 23:00 97 H 24 136/88 96 Oxymask 09/14/24 23:00 97 O2 Del Method O2 Flow Rate O2 Flow Rate 09/15/24 08:01 3 09/15/24 08:00 2 09/15/24 07:03 09/15/24 06:12 3 09/15/24 05:30 3 09/15/24 05:12 3 09/15/24 04:03 3 09/15/24 03:00 3 09/15/24 02:30 3 09/15/24 02:03 3 09/15/24 01:06 3 09/14/24 23:35 3 09/14/24 23:00 09/14/24 23:00 3 09/14/24 23:00 Oxymask 3 Laboratory Results CBC, BMP, procalcitonin, BNP, troponin, COVID/Influenza/RSV panel reviewed Diagnostic Findings chest xray and CT chest reviewed ECG Additional Comments: A fib w/ RVR (ventricular rate 111) on admission PG Care Time/CCT Total # of Minutes Spent Total Time Spent with Patient: Total time spent is greater than 50% in coordination of care (as documented) at patient's floor/unit and/or counseling patient: Coding Level of Care Code 28226 SUB INP/OBS CARE 3/50MIN Diagnoses Acute hypoxic respiratory failure J96.01 Atrial fibrillation with rapid ventricular response I48.91 Reactive airway disease J45.909 Viral pneumonia J12.9
[2024-09-15 17:54] LABS: Appearance Urine Clear (Clear); Bilirubin Urine Negative (Negative); Blood Urine Negative (Negative); Color Urine Yellow; Glucose Urine UA Negative (Negative); Ketones Urine Trace (Negative); Leukocyte Esterase Urine Negative (Negative); Nitrite Urine Negative (Negative); Protein Urine Negative (Negative); Specific Gravity Urine 1.023 (1.000-1.030); Urobilinogen Urine Negative (Negative)
[2024-09-16] MEDS: CALCIUM CARBONATE 500 MG CHEWABLE TAB PO PRN
[2024-09-16] MEDS: DICLOFENAC SOD 1% GEL 100 GM TUBE EXT PRN (03:46)
[2024-09-16 08:56] LABS: Hematocrit (blood only) 37.9 % (42.0-52.0); Hemoglobin 12.7 g/dl (14.0-18.0); Mean Corpuscular Hemoglobin 30.2 pg (25.0-34.0); Mean Corpuscular Hgb Conc 33.5 g/dL (32.0-36.0); Mean Corpuscular Volume 90.2 fL (80.0-100.0); Mean Platelet Volume 9.6 fL (9.4-12.4); Platelet Count 234 K/uL (130-400); RDW Coefficient of Variation 13.2 % (11.5-14.5); RDW Standard Deviation 43.8 fL (36.4-46.3); White Blood Count 10.77 K/ul (4.8-10.8)
[2024-09-16 09:09] LABS: Anion Gap 6 (3-11); BUN Creatinine Ratio 29.9 (10-20); Blood Urea Nitrogen 29 mg/dl (6-23); Calcium 8.6 mg/dl (8.6-10.3); Carbon Dioxide 29 mmol/L (21-32); Chloride 103 mmol/L (98-107); Glucose 134 mg/dl (70-99(Fasting)); Magnesium 2.3 mg/dl (1.7-2.4); Sodium 138 mmol/L (136-145)
[2024-09-16 09:21] LABS: Basophils # (auto) 0.01 K/uL (0.00-0.20); Basophils % (auto) 0.1 %; Immature Granulocytes # (auto) 0.06 K/uL (0.01-0.20); Immature Granulocytes % (auto) 0.6 %; Lymphocytes # (auto) 1.27 K/uL (1.20-3.40); Lymphocytes % (auto) 11.8 %; Monocytes # (auto) 0.73 K/uL (0.11-0.59); Monocytes % (auto) 6.8 %; Neutrophils % (auto) 80.7 %
[2024-09-16] MEDS: predniSONE 20 MG TAB PO SCH (10:48)
--- NOTE | 2024-09-16 11:52 | Hospitalist Progress Note ---
<Statement entered by Marcella Roper MD - 09/16/24 17:49> I have reviewed vital signs, chart notes, labs and imaging. I have personally seen, evaluated and examined the patient. I have also discussed the management of the patient with the JIMY and I agree with the exam findings documented in the history and physical examination and the documented assessment and plan unless otherwise stated below. 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, H&H 13.9/41.9; normal PT/INR; CMP grossly WNL with exception glucose 103, calcium 8.4; troponin is 20.5, pending repeat; BNP 206; procalcitonin 0.05; COVID/flu/RSV negative CXR reveals subtle R basilar streaky opacity, atelectasis versus infection and slightly blunted R costophrenic angle favoring a small pleural effusion;chest CTA no PE or stenosis, bilateral areas of groundglass nodules in right basilar atelectatic plate seen possible inflammatory/infectious changes, enlarged mediastinal lymph nodes largest being the right paratracheal at 2.1 x 1.5 cm; EKG reveals A-fib with RVR and RBBB at 110 bpm.; Patient was provided with metoprolol 5 mg IV, methylprednisone 40 mg IV, doxycycline 100 mg p.o., ceftriaxone 2 g IV, and albuterol 3 mL neb in ED. #Acute hypoxic respiratory failure/ reactive airway disease no history of pulmonary disease, but is a former 1 ppd smoker x [address] on admission without focal consolidation/PE. Enlarged mediastinal lymph nodes and ground glass opacities associated with infectious/inflammatory etiology No leukocytosis, procal x 2 negative, blood cultures negative, sputum culture obtained and negative RT following O2 at 3L on admission, has been weaned off throughout the day and currently maintaining saturations on RA. Patient has been afebrile, vitals have been stable - DuoNeb gordon and prn - PO prednisone 40mg daily - Azithromycin 500mg po x 3 days for atypical coverage (Day 2) PT initial evaluation today (09/16/24) - recommending return home with 24 hour supervision. Completed PT with O2 removed - O2 decreased to 91% with gait and 92% by end of session on RA. HR 121 and decreased to 103 after several minutes. Anticipated 2+ weeks of physical therapy, 3-5 times/week. #Impetigo symptoms began this AM. mupirocin 2% ointment TID x 10 days #A-fib with RVR Known history of Atrial Fibrillation s/p Watchman procedure in 07/2024. Continue home med carvedilol 6.25 mg BID for rate control. Heart rate has been stable. Currently anticoagulated with DAPT: asa 81mg 3x/week and plavix 75mg daily - was previously on Eliquis. D/C after Watchman procedure - EKG on admission does reveal A-fib with RVR to 110 bpm, received metoprolol tartrate 5 mg IV in ED. - In ED, initial troponin 20.5, repeat 21.1 - minimal change. there has been no evidence of ACS. likely mild demand ischemia in setting of A fib w/rvr/acute illness. no further workup indicated - BNP at 206 (decreased from baseline) - Currently rate acceptable for current illness - Has been monitored on telemetry with HR in 80s-90s. #HLD - continue atorvastatin 20mg daily #Cardiac disease/CHF -home med of nitro 0.4mg sublingual PRN chest pain & home med of furosemide 20mg PO daily. -No record of CAD/Angina or CHF in medical history. - established with [facility] cardiology Dr. Chan & PCP #Prostate CA/BPH- Hx of Stage IV Prostate Cancer treated with radiation therapy and Lupron x 12 month in 2020. Follows with urology, most recent visit 03/12/2024 Continue doxasozin. Dispo: Med surge w/ telemetry currently. Likely discharge tomorrow if he remains stable on RA with improvement in symptoms. VTE Prophylaxis: non chemical prophylaxis with SCDs: on chronic DAPT with asa/plavix Admission and Anticipated Discharge Date Admission Date: September 14, 2024 Subjective Patient is a 88 year old male with PMHx of Atrial Fibrillation s/p Watchmann procedure 08/21, HTN, HLD, Prostate cancer s/p chemo and radiation treatment 2020, BPH, GERD who presented to the ED with worsening sob, uri sx, weakness. He states he began with cold sx earlier this week, exposure to son who had recent URI as well. Patient was found to be hypertensive, hypoxic, with mild tachycardia. He was placed on supplemental O2, labs with mild elevation in BNP and troponin. Repeat troponin relatively unchanged and patient is without chest pain, diaphoresis, dizziness and BNP is decreased from baseline. ECG with Atril fibrillation with RVR, ventricular rate 111 bpm. Chest xray without focal pneumonia, pleural effusion. Chest CT without PE, noted ground glass opacities and mediastinal lymphadenopathy, likely due to inflammatory/infectious process. Panel for influenza/covid/rsv negative. Patient was provided with metoprolol 5 mg IV, methylprednisone 40 mg IV, doxycycline 100 mg p.o., ceftriaxone 2 g IV, and albuterol 3 mL neb in ED. He was admitted to PCU for ongoing treatment. Since admission, he has been downgraded from PCU. He remains on telemetry. He has transitioned to PO prednisone. He is currently saturating 91-92% on RA. Currently, patient states he is feeling pretty good. He states weakness has improved. He states he is no longer experiencing SOB at rest or with exertion. He states he is still coughing and has a hard time bringing up mucus, but cough overall improved since admission, reports occasional wheezing but improved. He denies fevers/chills, REYNOLDS, dizziness, sore throat, trouble swallowing, chest pain, palpitations, orthopnea, edema, N/V/D/C. He states he does experience dysuria every once in awhile, UA negative for infection. He states PT did evaluation today, was walking halls and had O2 tested. He reports rash around nostrils that began this AM. He has history of cold sores, states symptoms are not the same as he has not had tingling sensation. He denies itching. He reports rash is somewhat tender to touch. No additional complaints/concerns. Review of Systems Review of Systems: A 10 point review of systems has been obtained and negative unless otherwise noted in HPI Physical Exam Physical Exam: General: no acute distress; non-toxic appearing; well-nourished; cooperative; no supplemental O2 HEENT: normocephalic, atraumatic; no scleral icterus; PERRLA w/ EOMs intact; vision grossly intact; (+) hard of hearing on L side (+) erythematous rash around nostrils, worse on right side with honey colored crust present Neck: supple; no lymphadenopathy; trachea midline. JVD not present. Skin: warm, dry without signs of tenting; no cyanosis; no rashes, bruising, lesions, or erythema noted CV: chest wall NTP; (+) irregular rhythm. rate normal; S1/S2 normal; no murmur/rubs/gallops; pulses intact and symmetric at radial, DP, and PT Lungs: no acute respiratory distress; symmetrical chest wall expansion; good air movement bilaterally; (+) expiratory wheezing throughout lung hartmann without rales or rhonchi ABD: Soft, NTP; BS present; no rebound/guarding; no distention MSK: no tics or fasciculations; no edema noted in the LEs b/l, nonerythematous Neuro: A&Ox3; normal mood and affect; fluent speech; no focal deficits; sensation grossly intact in the LEs b/l Results & Data Results & Data Vital Signs (Past 12 Hours) Vital Signs Weight, temperature, HR, RR. BP, O2 saturations, and O2 delivery method reviewed Temp Pulse Resp BP Pulse Ox O2 Del Method O2 Flow Rate 09/16/24 10:15 102 H 16 93 Nasal Cannula 1 09/16/24 10:06 Nasal Cannula 2 09/16/24 08:30 98.1 F 71 18 121/76 93 Nasal Cannula 2 09/16/24 07:06 94 H 18 96 Nasal Cannula 2 09/16/24 04:18 97.5 F L 81 17 135/86 94 Nasal Cannula 2 09/16/24 02:12 95 H 18 Nasal Cannula 2 09/16/24 00:08 97.7 F 90 17 134/92 94 Nasal Cannula 2 FiO2 09/16/24 10:15 09/16/24 10:06 09/16/24 08:30 09/16/24 07:06 09/16/24 04:18 09/16/24 02:12 95 09/16/24 00:08 Laboratory Results cbc, bmp, magnesium reviewed Diagnostic Findings PT initial evaluation and assessment reviewed PG Care Time/CCT Total # of Minutes Spent Total Time Spent with Patient: Total time spent is greater than 50% in coordination of care (as documented) at patient's floor/unit and/or counseling patient: Coding Level of Care Code 16909 SUB INP/OBS CARE 3/50MIN Diagnoses Acute hypoxic respiratory failure J96.01 Atrial fibrillation with rapid ventricular response I48.91 Reactive airway disease J45.909 Impetigo L01.00
[2024-09-16] MEDS: MUPIROCIN 2% OINT 22 GM TUBE EXT SCH (20:22)
[2024-09-16 20:42] VITALS: TEMP 97.9
[2024-09-17 07:28] VITALS: RESP 17
[2024-09-17 08:16] LABS: Hematocrit (blood only) 37.9 % (42.0-52.0); Hemoglobin 12.4 g/dl (14.0-18.0); Mean Corpuscular Hemoglobin 29.7 pg (25.0-34.0); Mean Corpuscular Hgb Conc 32.7 g/dL (32.0-36.0); Mean Corpuscular Volume 90.7 fL (80.0-100.0); Mean Platelet Volume 9.3 fL (9.4-12.4); Platelet Count 254 K/uL (130-400); RDW Coefficient of Variation 13.2 % (11.5-14.5); RDW Standard Deviation 43.8 fL (36.4-46.3); Red Blood Count 4.18 M/uL (4.70-6.10); White Blood Count 9.35 K/ul (4.8-10.8)
[2024-09-17 08:34] LABS: Anion Gap 5 (3-11); BUN Creatinine Ratio 30.3 (10-20); Blood Urea Nitrogen 30 mg/dl (6-23); Calcium 8.5 mg/dl (8.6-10.3); Carbon Dioxide 32 mmol/L (21-32); Chloride 104 mmol/L (98-107); Glucose 100 mg/dl (70-99(Fasting)); Potassium 3.8 mmol/L (3.5-5.1); Sodium 141 mmol/L (136-145)
[2024-09-17] MEDS: Patient's HEIGHT Needed STA (08:54)
[2024-09-17] MEDS: ASPIRIN 81 MG ECTAB PO SCH (08:59)
[2024-09-17 09:12] VITALS: BP 108/57
[2024-09-17] MEDS: carvediloL 12.5 MG TAB PO SCH (09:13)
[2024-09-17 10:43] VITALS: PULSE 81; O2SAT 91
--- NOTE | 2024-09-17 18:00 | Discharge Summary ---
Discharge Summary Date of Service September 17, 2024 Principal Dx & Hospital Course #1 = Principal Diagnosis (1) Acute hypoxic respiratory failure: (2) Atrial fibrillation with rapid ventricular response: (3) Reactive airway disease: (4) Impetigo: Plan 88-year-old man who presented with acute hypoxic respiratory failure secondary to respiratory infection, likely viral URI with acute bronchospasm. He was also in atrial fibrillation with rapid ventricular rate. #Acute hypoxic respiratory failure/viral URI/bronchospasm He had a CTA of his chest in the ED which showed bilateral areas of ground glass nodules which appear to be infectious/inflammatory. Serial procalcitonin was negative. Influenza/COVID/RSV screen was negative. He was treated with steroids bronchodilators and oral azithromycin in case of an atypical pneumonia. He does not have documented history of asthma or COPD. I did not appreciate any JVD or peripheral edema on exam. BNP was 206 which is a bit lower than previously. Hypoxia resolved and symptoms of dyspnea significantly improved, continues to have some wheezing but has very good air movement. Discharged with prescription for prednisone for 5 days as well as an albuterol inhaler with spacer, follow-up in primary care # Atrial fibrillation with rapid ventricular ratethis was present at the time of admission and was treated with IV metoprolol and improved, subsequently he resumed his usual carvedilol and rate remained adequately controlled. He has a history of a Watchman procedure and is not chronically anticoagulated # Abnormal chest CTrepeat chest CT is recommended in approximately 3 months because of nodular appearance of the groundglass infiltrates as well as a right paratracheal enlarged lymph node measuring 2 x 1.5 cm, this is all likely reactive/infectious Notes For Next Care Provider Advise repeat chest CT for abnormal findings Medication Changes From Visit prednisone, albuterol added Admission HPI Per Admitting Provider 88-year-old male PMHx prostate cancer, A-fib with recent watchman, s/p pacemaker for bradycardia, BPH, hypercholesterolemia, and HTN presenting for SOB which has been worsening over the past week [employer]. 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 States that he does have a productive cough, but with clear sputum and that this has decreased some. 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 Denies fever or chills. No chest pain, palpitations, abdominal pain, N/V/D/C, numbness/tingling, LUTS, or F/C. Does not have a history of COPD or asthma. Smoked in the past, quit in the 1960s per patient. ED evaluation reveals no leukocytosis, H&H 13.9/41.9; normal PT/INR; CMP grossly WNL with exception glucose 103, calcium 8.4; troponin is 20.5, pending repeat; BNP 206; procalcitonin 0.05; COVID/flu/RSV negative CXR reveals subtle R basilar streaky opacity, atelectasis versus infection and slightly blunted R costophrenic angle favoring a small pleural effusion; chest CTA no PE or stenosis, bilateral areas of groundglass nodules in right basilar atelectatic plate seen possible inflammatory/infectious changes, enlarged mediastinal lymph nodes largest being the right paratracheal at 2.1 x 1.5 cm.; EKG reveals A-fib with RVR and RBBB at 110 bpm.; Patient was provided with metoprolol 5 mg IV, methylprednisone 40 mg IV, doxycycline 100 mg p.o., ceftriaxone 2 g IV, and albuterol 3 mL neb in ED. Please see Dr. Porter's attestation for adjustments/additions to treatment plan. Discharge Exam Last 24h vitals reviewed GEN: no acute distress, sitting in bed HEENT: pupils equal, sclerae anicteric, moist MM RESP: normal WOB, good air movement, musical exp wheezing bilaterally no crackles CV: reg no mrg, no JVD ABD: soft/nt/nd +BT : no lorenzana SKIN: warm and dry, no generalized rashes, no LE edema NEURO: AOx person, place, and situation. Face symmetric, speech normal, moves 4 ext spontaneously and equally Discharge Plan Discharge Items Patient Disposition: Home - Self-Care Reason For Visit: HYPOXIA, ?CAP Discharge Diagnosis: Viral URI with bronchospasm Activity: Per Instructions section Non-emergency contact: Primary Care Provider Call non-emergency contact if: you have any medication questions, your symptoms worsen and you have a fever Follow-up/Referrals: Conor Hoover [Primary Care Provider] - 09/25/24 11:15 am Diet: Regular Addtl Attending Provider Instructions: You were treated for respiratory infection that has caused a lot of wheezing (bronchospasm) -I think this was a viral infection - testing was negative for influenza, COVID and RSV however there are many more viruses it could be -I don't think you had pneumonia, but you finished a course of antibiotic in the hospital (azithromycin) in case of an atypical "walking" pneumonia -We are treating the wheezing with a course of steroids (prednisone) and inhaler -use a spacer with your inhaler - if you don't use a spacer the medicine will just coat your throat and not get deep into your lungs -long acting Delsym is a good cough medicine to use - you can buy this in the drug store - stop using it if it causes confusion or sleepiness -you're no longer needing oxygen -seek medical attention if breathing gets worse, or if you have chest pain or fevers on CT we saw enlarged lymph nodes in your cheat, likely reactive to the infection - talk to your doctor about repeating a scan in 6-12 weeks to make sure this resolves you're probably a bit weaker with this illness - make sure a family member is around to help you, and use your cane and walker consistently for the next few weeks until you recover It was a pleasure taking care of you in the hospital, Marcella Roper MD Pending Studies at Discharge: No Stand-Alone Forms: [facility] Medications and DC Order Prescriptions: New prednisone 20 mg Tablet 40 mg PO QAM Qty: 10 0RF dextromethorphan polistirex [Delsym 12 hour] 30 mg/5 mL Suspension,Extended Rel 12 Hr 30 mg PO Q12H PRN (Reason: cough) Qty: 0 0RF Rx Instructions: buy over the counter mupirocin 2 % Ointment 1 applic EXT TID Qty: 15 0RF Rx Instructions: apply small amount to rash near nose for one week albuterol sulfate 90 mcg/actuation HFA aerosol inhaler 2 inh inhalation Q4H PRN (Reason: shortness of breath or wheezing) Qty: 6.7 1RF (DME) Spacer for Inhaler Misc See Rx Instructions .Route Qty: 1 0RF Rx Instructions: As directed Continued Lupron Depot (3 month) 22.5 mg syringe kit 0 mg IM DIRECTED Rx Instructions: Pt is unsure of this medication, doesn't remember any injections. Started 08/29/2020 (Dr. Mckeon) doxazosin 1 mg tablet 1 mg PO DAILY calcium carbonate [Tums] 200 mg calcium (500 mg) tablet,chewable 1,000 mg PO DAILY atorvastatin 20 mg tablet 20 mg PO DAILY ascorbic acid (vitamin C) 500 mg capsule, extended release 1,000 mg PO DAILY cholecalciferol (vitamin D3) 25 mcg (1,000 unit) capsule 500 unit PO DAILY aspirin [Adult Aspirin Regimen] 81 mg tablet,delayed release (DR/EC) 81 mg PO 3XWK acetaminophen 325 mg tablet 650 mg PO Q6H PRN (Reason: Pain/Fever) carvedilol 6.25 mg tablet 6.25 mg PO BID clopidogrel 75 mg tablet 75 mg PO DAILY nitroglycerin 0.4 mg tablet, sublingual 0.4 mg sublingual DIRECTED PRN (Reason: Chest Pain) furosemide 20 mg tablet 20 mg PO DAILY [place]-3 350 mg-235 mg- 90 mg-597 mg Capsule,Delayed Release(Dr/Ec) 1 cap PO DAILY Discharge Orders: Discharge Order (Routine); Ordered 09/17/24 Ordered By: Marcella Jay/Other Patient Handouts: Preventing Pneumonia, Treating Pneumonia Admission Data Admit Date/Time: 09/14/24 19:51 Attending Provider: Marcella Roper Admit Provider: Samuel Porter Primary Care Provider: Conor Hoover Other Providers: Samuel Porter Other Interventions: Discharge Summary Assessment (RN) Last Done: 09/17/24 12:45 Hospital Stay Data Consultations 09/14/24 18:37 ED Decision to Admit Stat Diagnostic Imagining Performed 09/14/24 17:41 CT angio chest PE protocol Stat Pending Results Patient Have Any Pending Studies at Discharge: No Discharge Instructions Given to Patient (Per Discharging Provider) You were treated for respiratory infection that has caused a lot of wheezing (bronchospasm) -I think this was a viral infection - testing was negative for influenza, COVID and RSV however there are many more viruses it could be -I don't think you had pneumonia, but you finished a course of antibiotic in the hospital (azithromycin) in case of an atypical "walking" pneumonia -We are treating the wheezing with a course of steroids (prednisone) and inhaler -use a spacer with your inhaler - if you don't use a spacer the medicine will just coat your throat and not get deep into your lungs -long acting Delsym is a good cough medicine to use - you can buy this in the drug store - stop using it if it causes confusion or sleepiness -you're no longer needing oxygen -seek medical attention if breathing gets worse, or if you have chest pain or fevers on CT we saw enlarged lymph nodes in your cheat, likely reactive to the infection - talk to your doctor about repeating a scan in 6-12 weeks to make sure this resolves you're probably a bit weaker with this illness - make sure a family member is around to help you, and use your cane and walker consistently for the next few weeks until you recover It was a pleasure taking care of you in the hospital, Marcella Roper MD Total Time Total Time Spent Total Time Spent (In Minutes): <30 Coding Level of Care Code 77287 IN/OBS DISCH 30 MIN/LESS Diagnoses Acute hypoxic respiratory failure J96.01 Atrial fibrillation with rapid ventricular response I48.91 Reactive airway disease J45.909 Impetigo L01.00
--- NOTE | 2024-09-18 16:04 | Coding Query ---
CODING QUERY To promote full compliance with coding requirements relating to patient care, provider participation is requested in all cases of instrument calibrator uncertainty. Please assist us with the question(s) below: Coding Question(s): Viral Pneumonia and Viral URI were both listed on progress notes, however its not clear if these are both still dx upon discharge. Physician's Response(s): ( x) Viral Pneumonia ( x) POA ( ) Not POA ( ) Resolved Viral URI ( ) POA ( ) Not POA ( ) Resolved Thank you Melinda Harrell Principal Diagnosis: "that condition established after study, to be chiefly responsible for occasioning the admission of the patient to the hospital for care." Co-Existing Principal Diagnosis: "when two or more diagnoses equally meet the criteria for principal diagnosis as determined by the circumstances of admission, diagnostic work up, and/or therapy provided, and the Alphabetic Index, Tabular List, or another coding guideline does not provide sequencing direction, any one of the diagnoses may be sequenced first." "When the physician has documented what appears to be a current diagnosis in the body of the record, but has not included the diagnosis in the final diagnostic statement, the physician should be asked whether the diagnosis should be added." (Source Coding [facility] 2 QTR90. p3-4) RAKEL
== END 2024-09-17 13:39 | disposition home or self-care (01) | DRG 193 ==
LOC: ED 16:54 → EDINP 19:51 → SUATTDRO 19:51 → 2S 23:19 → 3W 09-16 20:28